=== PATIENT | male | born 1970 | race Caucasian/White ===

== ENCOUNTER 2016-10-20 10:18 | Emergency (ER) | payer MEDICAID, OTHER ==
[2016-10-20 10:25] VITALS: TEMP 97.8; BMI 41.3
[2016-10-20] MEDS ORDERED: DiphenhydrAMINE 50 mg/ml Inj IVP STA (10:28)
--- NOTE | 2016-10-20 11:19 | ED PDOC ---
Arrival/HPI - General Chief Complaint: Allergic Reaction Time Seen by Provider: 10/20/16 10:28 Historian: Patient - History of Present Illness Narrative History of Present Illness (Text): 10/20/16 11:21 Genoveva Case is a 46 year old male who presents to the emergency department with diffuse rash and body itching today. Symptom onset began after taking Amoxicillin and Omeprazole by accident. Patient otherwise denies any fever, chills, chest pain, shortness of breath, nausea, vomiting, diarrhea, urinary symptoms, back pain, neck pain, headache, dizziness, or any other complaints. PMD: Jericho Sanford MD Time/Duration: 24 hours Symptom Onset: Sudden Symptom Course: Unchanged Activities at Onset: Light Context: Home Past Medical History - Provider Review Nursing Documentation Reviewed: Yes - Tetanus Immunization Tetanus Immunization: Unknown - Past Medical History Past Medical History: No Previous - Cardiac Hx Cardiac Disorders: No - Pulmonary Hx Respiratory Disorders: No - Neurological Hx Neurological Disorder: No - HEENT Hx HEENT Disorder: No - Renal Hx Renal Disorder: No - Endocrine/Metabolic Hx Endocrine Disorders: No - Hematological/Oncological Hx Blood Disorders: No - Integumentary Hx Dermatological Disorder: No - Musculoskeletal/Rheumatological Hx Musculoskeletal Disorders: No - Gastrointestinal Hx Gastrointestinal Disorders: No - Genitourinary/Gynecological Hx Genitourinary Disorders: No - Psychiatric Hx Psychophysiologic Disorder: No Hx Substance Use: No - Past Surgical History Past Surgical History: No Previous - Anesthesia Hx Anesthesia: No - Suicidal Assessment Feels Threatened In Home Enviroment: No Family/Social History - Physician Review Nursing Documentation Reviewed: Yes Family/Social History: No Known Family HX Smoking Status: Former Smoker Hx Alcohol Use: No Hx Substance Use: No Hx Substance Use Treatment: No Allergies/Home Meds Allergies/Adverse Reactions: Allergies amoxicillin Allergy (Verified 10/20/16 10:28) ITCHING clarithromycin [From Biaxin] Allergy (Verified 10/20/16 10:28) ITCHING omeprazole Allergy (Verified 10/20/16 10:28) ITCHING Review of Systems - Physician Review All systems were reviewed & negative as marked: Yes - Review of Systems Constitutional: Normal Eyes: Normal ENT: Normal Respiratory: Normal. absent: SOB, Cough Cardiovascular: Normal. absent: Chest Pain Gastrointestinal: Normal. absent: Abdominal Pain, Diarrhea, Nausea, Vomiting Genitourinary Male: Normal. absent: Dysuria, Frequency, Hematuria, Urinary Output Changes Musculoskeletal: Normal. absent: Back Pain, Neck Pain Skin: Rash, Pruritis Neurological: Normal. absent: Headache, Dizziness Endocrine: Normal Hemo/Lymphatic: Normal Psychiatric: Normal Physical Exam Vital Signs Reviewed: Yes Vital Signs Temp Pulse Resp BP Pulse Ox 10/20/16 11:56 67 18 135/79 98 10/20/16 10:19 97.8 F 108 H 22 124/83 92 L Temperature: Afebrile Blood Pressure: Normal Pulse: Tachycardic Respiratory Rate: Normal Appearance: Positive for: Well-Appearing, Non-Toxic, Comfortable Pain Distress: None Mental Status: Positive for: Alert and Oriented X 3 - Systems Exam Head: Present: Atraumatic, Normocephalic Pupils: Present: PERRL Extroacular Muscles: Present: EOMI Conjunctiva: Present: Normal Mouth: Present: Moist Mucous Membranes, Normal Lips, Normal Tounge Pharnyx: Present: Normal, Other (No Stridor). No: ERYTHEMA, EXUDATE, Uvular Deviation, Soft Palate/Uvular Edema Neck: Present: Normal Range of Motion Respiratory/Chest: Present: Clear to Auscultation, Good Air Exchange. No: Respiratory Distress, Accessory Muscle Use Cardiovascular: Present: Regular Rate and Rhythm, Normal S1, S2. No: Murmurs Abdomen: Present: Normal Bowel Sounds. No: Tenderness, Distention, Peritoneal Signs Upper Extremity: Present: Erythema. No: Cyanosis, Edema Lower Extremity: Present: Erythema. No: Edema Neurological: Present: GCS=15, CN II-XII Intact, Speech Normal Skin: Present: Dry, Normal Color, Erythematous (Diffuse Erythema) Psychiatric: Present: Alert, Oriented x 3, Normal Insight, Normal Concentration Medical Decision Making ED Course and Treatment: 10/20/16 10:28 Impression: 46 year old male with diffuse rash and itching after taking Amoxicillin and Omeprazole. Will observe patient in the emergency department. Plan: -- Benadryl -- Solumedrol -- Reassess and disposition Prior Visits: Notes and results from previous visits were reviewed. Patient was last seen in the emergency department on 10/15/15 for an allergic reaction. Progress Notes: 10/20/16 12:23 On re-evaluation, the patient feels better and is in no acute distress. I have discussed the plan with the patient, who expresses understanding. Patient in agreement with plan to discharged home. Patient is stable for discharge. Patient was instructed to follow up with physician/clinic in 1-2 days or return if symptoms worsen or new concerning symptoms arise. Re-evaluation Time: 12:30 - Medication Orders Current Medication Orders: Discontinued Medications Diphenhydramine HCl (Benadryl) 50 mg IVP STAT STA Stop: 10/20/16 10:29 Last Admin: 10/20/16 10:32 Dose: 50 mg Methylprednisolone (Solu-Medrol) 125 mg IVP STAT STA Stop: 10/20/16 10:29 Last Admin: 10/20/16 10:32 Dose: 125 mg Disposition/Present on Arrival - Present on Arrival Any Indicators Present on Arrival: No History of DVT/PE: No History of Uncontrolled Diabetes: No Urinary Catheter: No History of Decub. Ulcer: No History Surgical Site Infection Following: None - Disposition Have Diagnosis and Disposition been Completed?: Yes Diagnosis: Allergic reaction Disposition: HOME/ ROUTINE Disposition Time: 12:20 Patient Plan: Discharge Condition: IMPROVED Discharge Instructions (ExitCare): General Allergic Reaction (ED) Additional Instructions: Thank you for letting us take care of you today. Your provider was Dr. Miranda. You were treated for an allergic reaction. The emergency medical care you received today was directed at your acute symptoms. If you were prescribed any medication, please fill it and take as directed. It may take several days for your symptoms to resolve. Return to the Emergency Department if your symptoms worsen, do not improve, or if you have any other problems. Please contact your doctor or call one of the physicians/clinics you have been referred to that are listed on the Patient Visit Information form that is included in your discharge packet. Bring any paperwork you were given at discharge with you along with any medications you are taking to your follow up visit. Our treatment cannot replace ongoing medical care by a primary care provider (PCP) outside of the emergency department. Thank you for allowing the [facility] team to be part of your care today. DO NOT TAKE ANY OF THE MEDICATION YOU TOOK TODAY. YOU ARE ALLERGIC TO AT LEAST 1 OF THEM. Follow up with your doctor tomorrow morning to be re-evaluated. Prescriptions: predniSONE [Prednisone] 40 mg PO DAILY #10 tab Referrals: Jericho Sanford MD [Primary Care Provider] - Follow up with primary
[2016-10-20 11:57] VITALS: BP 135/79; PULSE 67; RESP 18; O2SAT 98
== END 2016-10-20 12:40 | disposition home or self-care (01) ==
LOC: ED 10:18
DX: T78.49XA Other allergy, initial encounter (principal); X58.XXXA Exposure to other specified factors, initial encounter
CPT/HCPCS: 96374; 96375; 99283; J1200; J2930